=== PATIENT | female | born 1990 | race Caucasian/White ===

== ENCOUNTER 2017-11-05 18:57 | Emergency (ER) | payer SELFPAY ==
[2017-11-05] MEDS ORDERED: ALBUTEROL SULFATE HFA (90 MCG/PUFF) 8 GM MDI (1 MDI/ER DISP) IH PRN (19:27)
[2017-11-05] MEDS ORDERED: KETOROLAC TROMETHAMINE 60 MG/2 ML SDV IM ONE (19:47)
--- NOTE | 2017-11-05 20:08 | ER Document Report ---
ED General - General Chief Complaint: Cold Symptoms Stated Complaint: FEVER,COUGH Time Seen by Provider: 11/05/17 19:23 Mode of Arrival: Ambulatory Information source: Patient Notes: 27-year-old female presents with 2 day duration of generalized body aches fevers nonproductive cough. Patient notes she has had intermittent cough for the past 4 or 5 months since she stopped smoking. She denies any shortness breath or fevers throughout that period of time. Patient does note that the symptoms worsened in the last few days and that this feels different. On arrival patient is noted to be febrile TRAVEL OUTSIDE OF THE [place] IN LAST 30 DAYS: No - HPI Onset: Yesterday Onset/Duration: Persistent Quality of pain: Achy Severity: Mild Pain Level: 1 Associated symptoms: Body/muscle aches, Nonproductive cough, Fever Exacerbated by: Denies Relieved by: Denies Similar symptoms previously: No Recently seen / treated by doctor: No - Related Data Allergies/Adverse Reactions: cats Allergy (Uncoded 11/05/17 18:57) Past Medical History - Social History Smoking Status: Former Smoker Cigarette use (# per day): No Chew tobacco use (# tins/day): No Smoking Education Provided: No Frequency of alcohol use: None Drug Abuse: None Family History: Reviewed & Not Pertinent Patient has suicidal ideation: No Patient has homicidal ideation: No Pulmonary Medical History: Reports: Hx Asthma Renal/ Medical History: Denies: Hx Peritoneal Dialysis Past Surgical History: Reports: Hx Oral Surgery - wisdom teeth - Immunizations Hx Diphtheria, Pertussis, Tetanus Vaccination: Yes Review of Systems - Review of Systems Notes: REVIEW OF SYSTEMS: CONSTITUTIONAL : admits to fever EENT: Denies eye, ear, throat, or mouth pain or symptoms. Denies nasal or sinus congestion or discharge. Denies throat, tongue, or mouth swelling or difficulty swallowing. CARDIOVASCULAR: Denies chest pain. Denies palpitations or racing or irregular heart beat. Denies ankle edema. RESPIRATORY:admits to ocugh productive , sob GASTROINTESTINAL: Denies abdominal pain or distention. Denies nausea, vomiting , or diarrhea. Denies blood in vomitus, stools, or per rectum. Denies black, tarry stools. Denies constipation. GENITOURINARY: Denies difficulty urinating, painful urination, burning, frequency, blood in urine, or discharge. FEMALE GENITOURINARY: Denies vaginal bleeding, heavy or abnormal periods, irregular periods. Denies vaginal discharge or odor. MUSCULOSKELETAL: Denies back or neck pain or stiffness. Denies joint pain or swelling. SKIN: Denies rash, lesions or sores. HEMATOLOGIC : Denies easy bruising or bleeding. LYMPHATIC: Denies swollen, enlarged glands. NEUROLOGICAL: Denies confusion or altered mental status. Denies passing out or loss of consciousness. Denies dizziness or lightheadedness. Denies headache. Denies weakness or paralysis or loss of use of either side. Denies problems with gait or speech. Denies sensory loss, numbness, or tingling. Denies seizures. PSYCHIATRIC: Denies anxiety or stress. Denies depression, suicidal ideation, or homicidal ideation. ALL OTHER SYSTEMS REVIEWED AND NEGATIVE. PHYSICAL EXAMINATION: GENERAL: Well-appearing, well-nourished and in no acute distress. febrile HEAD: Atraumatic, normocephalic. EYES: Pupils equal round and reactive to light, extraocular movements intact, conjunctiva are normal. ENT: Nares patent, oropharynx clear without exudates. Moist mucous membranes. NECK: Normal range of motion, supple without lymphadenopathy LUNGS: Breath sounds clear to auscultation bilaterally and equal. faint end expiratroy wheezing HEART: Regular rate and rhythm without murmurs ABDOMEN: Soft, nontender, nondistended abdomen. No guarding, no rebound. No masses appreciated. Female : deferred Musculoskeletal: Normal range of motion, no pitting or edema. No cyanosis. NEUROLOGICAL: Cranial nerves grossly intact. Normal speech, normal gait. Normal sensory, motor exams PSYCH: Normal mood, normal affect. SKIN: Warm, Dry, normal turgor, no rashes or lesions noted. Dictation was performed using [employer] recognition software Physical Exam - Vital signs Vitals: Temp Pulse Resp BP Pulse Ox 101.2 F H 127 H 20 153/104 H 95 11/05/17 19:01 11/05/17 19:01 11/05/17 19:01 11/05/17 19:01 11/05/17 19:01 Course - Re-evaluation Re-evalutation: 11/05/17 20:21 Chest x-ray influenza pending otherwise patient looks well is in no distress she will be treated for fever - Vital Signs Vital signs: Temp Pulse Resp BP Pulse Ox 101.2 F H 127 H 20 153/104 H 95 11/05/17 19:01 11/05/17 19:01 11/05/17 19:01 11/05/17 19:01 11/05/17 19:01 Discharge - Discharge Clinical Impression: Body aches, Tachycardia Fever Qualifiers: Fever type: unspecified Qualified Code(s): R50.9 - Fever, unspecified Condition: Stable Disposition: HOME, SELF-CARE Instructions: Upper Respiratory Illness ([facility]) Additional Instructions: Follow up with your physician tomorrow for further care or return to the ED IMMEDIATELY if symptoms worsen or new concerns occur. If you cannot afford to follow up with your primary care physician a list of low cost clinics have been provided at the end of your discharge papers as well. Forms: Return to Work
[2017-11-05 20:36] LABS: A TYPE INFLUENZA AG NEGATIVE (NEGATIVE); B INFLUENZA AG NEGATIVE (NEGATIVE)
--- NOTE | 2017-11-05 20:54 | RADIOLOGY REPORT (SQ) ---
EXAM DESCRIPTION: CHEST PA/LAT COMPLETED DATE/TIME: 11/05/2017 8:47 pm REASON FOR STUDY: cough, fever COMPARISON: 2014. TECHNIQUE: Frontal and lateral radiographic views of the chest acquired. NUMBER OF VIEWS: Two view. LIMITATIONS: None. FINDINGS: LUNGS AND PLEURA: No opacities, masses or pneumothorax. No pleural effusion. MEDIASTINUM AND HILAR STRUCTURES: No masses or contour abnormalities. HEART AND VASCULAR STRUCTURES: Heart normal size. No evidence for failure. BONES: No acute findings. HARDWARE: None in the chest. OTHER: No other significant finding. IMPRESSION: NO SIGNIFICANT RADIOGRAPHIC FINDING IN THE CHEST. TECHNICAL DOCUMENTATION: JOB ID: [id number] [employer]- All Rights Reserved
[2017-11-05 21:14] VITALS: BP 140/93
== END 2017-11-05 21:11 | disposition home or self-care (01) ==
LOC: ER 18:57
DX: M79.1 Myalgia (principal); R00.0 Tachycardia, unspecified; R50.9 Fever, unspecified; Z87.891 Personal history of nicotine dependence
CPT/HCPCS: 99283; 96372; 87804; 71046; J1885; J3490

== ENCOUNTER 2018-09-04 11:49 | Inpatient (IN) | payer SELFPAY ==
[2018-09-04] MEDS ORDERED: NORMAL SALINE 1000 ML 1,000 ML IV ONE (12:51)
[2018-09-04] MEDS ORDERED: IPRATROPIUM/ALBUTEROL 0.5-2.5 MG/3 ML AMPUL NEB ONE ×2 (12:51→14:25)
[2018-09-04] MEDS ORDERED: METHYLPREDNISOLONE INJ 125 MG/2 ML SDV IV ONE (12:51)
--- NOTE | 2018-09-04 12:53 | ER Document Report ---
ED Medical Screen (RME) - General Chief Complaint: Cough Stated Complaint: DIFFICULTY BREATHING,CONGESTION Time Seen by Provider: 09/04/18 12:30 Mode of Arrival: Ambulatory Information source: Patient Notes: Patient presents with a 3-day history of exertional dyspnea and cough. Patient complains of a pressure in her chest that radiates through to her back. Patient denies any fever. Patient states this is not typical of her usual asthma exacerbations. Patient is concerned that she may have pneumonia. Patient ambulated in the ER and heart rate increased to 138, oxygen saturation maintained at 94% I have greeted and performed a rapid initial assessment of this patient. A comprehensive ED assessment and evaluation of the patient, analysis of test results and completion of the medical decision making process will be conducted by additional ED providers. TRAVEL OUTSIDE OF THE [place] IN LAST 30 DAYS: No - Related Data Allergies/Adverse Reactions: cats Allergy (Uncoded 11/05/17 18:57) Past Medical History Pulmonary Medical History: Reports: Hx Asthma Renal/ Medical History: Denies: Hx Peritoneal Dialysis Past Surgical History: Reports: Hx Oral Surgery - wisdom teeth - Immunizations Hx Diphtheria, Pertussis, Tetanus Vaccination: Yes Physical Exam - Vital signs Vitals: Temp Pulse Resp BP Pulse Ox 98.1 F 124 H 16 189/92 H 96 09/04/18 11:54 09/04/18 11:54 09/04/18 11:54 09/04/18 11:54 09/04/18 11:54 - Respiratory Respiratory status: Labored Breath sounds: Nonproductive cough, Wheezing - Faint wheezing - Cardiovascular Rhythm: Tachycardia - 138 Heart sounds: S1 appreciated, S2 appreciated Course - Vital Signs Vital signs: Temp Pulse Resp BP Pulse Ox 98.1 F 124 H 16 189/92 H 96 09/04/18 11:54 09/04/18 11:54 09/04/18 11:54 09/04/18 11:54 09/04/18 11:54
[2018-09-04 13:53] LABS: ABSOLUTE EOSINOPHILS # (AUTO) 0.2 10^3/uL (0.0-0.6); ABSOLUTE LYMPHOCYTES (AUTO) 1.2 10^3/uL (0.5-4.7); ABSOLUTE MONOCYTES (AUTO) 0.6 10^3/uL (0.1-1.4); HEMATOCRIT 45.1 % (36.0-47.0); HEMOGLOBIN 15.7 g/dL (12.0-15.5); LYMPHOCYTES % (AUTO) 23.2 % (13-45); MEAN CORPUSCULAR HEMOGLOBIN 28.3 pg (27.0-33.4); MEAN CORPUSCULAR HGB CONC 34.9 g/dL (32.0-36.0); MEAN CORPUSCULAR VOLUME 81 fl (80-97); MONOCYTES % (AUTO) 12.2 % (3-13); PLATELET COUNT 295 10^3/uL (150-450); RED BLOOD COUNT 5.57 10^6/uL (3.72-5.28); RED CELL DISTRIBUTION WIDTH 13.1 % (11.5-14.0); SEGMENTED NEUTROPHILS % (AUTO) 59.6 % (42-78); TOTAL CELLS COUNTED % (AUTO) 100 %
--- NOTE | 2018-09-04 14:17 | RADIOLOGY REPORT (SQ) ---
EXAM DESCRIPTION: CHEST 2 VIEWS COMPLETED DATE/TIME: 09/04/2018 1:52 pm REASON FOR STUDY: cp, anita COMPARISON: 11/05/2017 EXAM PARAMETERS: NUMBER OF VIEWS: two views TECHNIQUE: Digital Frontal and Lateral radiographic views of the chest acquired. RADIATION DOSE: NA LIMITATIONS: none FINDINGS: LUNGS AND PLEURA: No opacities, masses or pneumothorax. No pleural effusion. MEDIASTINUM AND HILAR STRUCTURES: No masses or contour abnormalities. HEART AND VASCULAR STRUCTURES: Heart normal size. No evidence for failure. BONES: No acute findings. HARDWARE: None in the chest. OTHER: No other significant finding. IMPRESSION: NO ACUTE RADIOGRAPHIC FINDING IN THE CHEST. TECHNICAL DOCUMENTATION: JOB ID: [id number] [employer]- All Rights Reserved Reading location - IP/workstation name: [email or web address]
[2018-09-04 14:19] LABS: ALANINE AMINOTRANSFERASE 24 U/L (9-52); ALBUMIN 4.5 g/dL (3.5-5.0); ALKALINE PHOSPHATASE 59 U/L (38-126); ANION GAP 13 (5-19); ASPARTATE AMINO TRANSFERASE 36 U/L (14-36); BILIRUBIN,DIRECT 0.3 mg/dL (0.0-0.4); BILIRUBIN,TOTAL 0.4 mg/dL (0.2-1.3); BLOOD UREA NITROGEN 11 mg/dL (7-20); CALCIUM 9.4 mg/dL (8.4-10.2); CARBON DIOXIDE 25 mmol/L (22-30); CHLORIDE 102 mmol/L (98-107); GLUCOSE 105 mg/dL (75-110); SODIUM 139.5 mmol/L (137-145); TOTAL PROTEIN 8.2 g/dL (6.3-8.2)
[2018-09-04] MEDS ORDERED: ALBUTEROL SULFATE 0.083% NEB 2.5 MG/3 ML AMPUL NEB ONE (14:25)
[2018-09-04] MEDS ORDERED: MAGNESIUM SULFATE/D5W 2 GM/200 ML RTUPB IV ONE (15:16)
[2018-09-04] MEDS: MAGNESIUM SULFATE/D5W 1 GM/100 ML RTUPB IV SCH ×2 (15:21→15:32)
--- NOTE | 2018-09-04 16:28 | ER Document Report ---
ED Respiratory Problem - General Chief Complaint: Cough Stated Complaint: DIFFICULTY BREATHING,CONGESTION Time Seen by Provider: 09/04/18 12:30 Mode of Arrival: Ambulatory Notes: Patient is a 28-year-old female with past medical history of asthma who presents with chief complaint of shortness of breath. Patient reports that she began with a cough and congestion 3 days ago states that she has been using her albuterol inhaler with minimal relief. Patient states that she has had a history of multiple pneumonias in the past. Denies any fever or chills. Denies any chest pain. Patient denies any history of DVT or PE, denies any recent travel, denies the use of any oral contraceptives, does reports that she smokes approximately 2 times per month. TRAVEL OUTSIDE OF THE [place] IN LAST 30 DAYS: No - Related Data Allergies/Adverse Reactions: No Known Drug Allergies Allergy (Verified 09/04/18 12:55) cats Allergy (Uncoded 09/04/18 12:55) Past Medical History - General Information source: Patient - Social History Smoking Status: Never Smoker Chew tobacco use (# tins/day): No Frequency of alcohol use: None Drug Abuse: None Family History: Reviewed & Not Pertinent Patient has suicidal ideation: No Patient has homicidal ideation: No Pulmonary Medical History: Reports: Hx Asthma Renal/ Medical History: Denies: Hx Peritoneal Dialysis Past Surgical History: Reports: Hx Oral Surgery - wisdom teeth - Immunizations Hx Diphtheria, Pertussis, Tetanus Vaccination: Yes Review of Systems - Review of Systems Constitutional: No symptoms reported EENT: No symptoms reported Cardiovascular: No symptoms reported Respiratory: Cough, Short of breath, Wheezing Gastrointestinal: No symptoms reported Genitourinary: No symptoms reported Female Genitourinary: No symptoms reported Musculoskeletal: No symptoms reported Skin: No symptoms reported Hematologic/Lymphatic: No symptoms reported Neurological/Psychological: No symptoms reported Physical Exam - Vital signs Vitals: Temp Pulse Resp BP Pulse Ox 98.1 F 124 H 16 189/92 H 96 09/04/18 11:54 09/04/18 11:54 09/04/18 11:54 09/04/18 11:54 09/04/18 11:54 - Notes Notes: PHYSICAL EXAMINATION: GENERAL: Well-appearing, well-nourished and in moderate distress. HEAD: Atraumatic, normocephalic. EYES: Pupils equal round and reactive to light, extraocular movements intact, conjunctiva are normal. ENT: Nares patent, oropharynx clear without exudates. Moist mucous membranes. NECK: Normal range of motion, supple without lymphadenopathy LUNGS: Expiratory wheezing noted bilaterally.. HEART: Regular rate and rhythm without murmurs ABDOMEN: Soft, nontender, nondistended abdomen. No guarding, no rebound. No masses appreciated. Female : No CVA tenderness. Musculoskeletal: Normal range of motion, no pitting or edema. No cyanosis. NEUROLOGICAL: Cranial nerves grossly intact. Normal speech, normal gait. Normal sensory, motor exams PSYCH: Normal mood, normal affect. SKIN: Warm, Dry, normal turgor, no rashes or lesions noted. Course - Re-evaluation Re-evalutation: Patient with significant expiratory wheezing on initial examination. At this time she had Erick received 1 DuoNeb and 125 mg of IV Solu-Medrol. Chest x-ray was performed which was negative for any infiltrates or pneumothorax. Patient' s pulse ox remains 93-94% on room air, heart rate in the 120s. Patient will be given 1 L normal saline. Repeat evaluation patient continues to have significant expiratory wheezing. 2 g of mag sulfate were delivered IV. Additional breathing treatments ordered. Patient reports no improvement of her symptoms. Contacted hospitalist, Dr. Combs for admission. He agrees to come and evaluate the patient. - Vital Signs Vital signs: Temp Pulse Resp BP Pulse Ox 98.1 F 128 H 16 140/67 H 92 09/04/18 11:54 09/04/18 16:39 09/04/18 16:39 09/04/18 16:39 09/04/18 16:39 - Laboratory Result Diagrams: 09/04/18 13:27 09/04/18 13:27 Laboratory results interpreted by me: 09/04/18 13:27 RBC 5.57 H Hgb 15.7 H Discharge - Discharge Clinical Impression: Tachycardia Asthma exacerbation Qualifiers: Asthma severity: mild Asthma persistence: intermittent Qualified Code(s): J45.21 - Mild intermittent asthma with (acute) exacerbation Condition: Stable Disposition: ADMITTED INPATIENT Admitting Provider: Hospitalist Unit Admitted: Medical Floor
[2018-09-04] MEDS ORDERED: MAG HYDROX/AL HYDROX/SIMETH SUSP 30 ML UDCUP PO PRN (17:28)
[2018-09-04] MEDS ORDERED: MAGNESIUM HYDROXIDE SUSP 30 ML UDCUP PO PRN (17:28)
[2018-09-04] MEDS ORDERED: ZOLPIDEM TARTRATE 5 MG TABLET PO PRN (17:28)
[2018-09-04] MEDS ORDERED: ACETAMINOPHEN 650 MG SUPP.RECT PR PRN (17:33)
[2018-09-04] MEDS ORDERED: ACETAMINOPHEN 325 MG TABLET PO PRN (17:33)
[2018-09-04] MEDS: METHYLPREDNISOLONE INJ 40 MG/1 ML SDV IV SCH ×2 (18:12→23:05)
--- NOTE | 2018-09-04 18:37 | EKG REPORT ---
SEVERITY:- ABNORMAL ECG - SINUS TACHYCARDIA BORDERLINE RIGHT AXIS DEVIATION INFERIOR Q WAVES, PROBABLY NORMAL VARIATION BORDERLINE T ABNORMALITIES, INFERIOR LEADS : Confirmed by: Maikel Thomas MD 04-Sep-2018 18:36:57
--- NOTE | 2018-09-04 19:02 | PDOC H&P ---
History of Present Illness Admission Date/PCP: 09/04/18 17:37 Patient complains of: Dyspnea with wheezing History of Present Illness: MICHELLE VERGARA is a 28 year old female who presented to the emergency room with a 3-day history of worsening dyspnea and wheezing. She admits that she has a history of asthma which was more severe as a child but in her adult life she has experienced on average 1 attack per year. Her attacks usually come on about the same time every year (around ) and are generally less severe than the current attack. She describes her current attack as being severe dyspnea and wheezing with a sensation of inability to take a deep breath due to a nonradiating, moderately severe, heaviness, centrally positioned on the anterior chest. She associates the dyspnea and wheezing with a mild cough and nasal congestion that she developed over the same interval. She has used a few puffs of what was left in an old albuterol inhaler at home without relief. She subsequently presented to the emergency room for treatment and after receiving several nebulizer treatments as well as intravenous magnesium sulfate and IV steroids she had improved but remained somewhat hypoxic with any exertion and continued to have dyspnea which was mild at rest and moderate with activity or exertion. Because of her failure to clear she was admitted to the hospital for further evaluation treatment. Past Medical History Cardiac Medical History: Reports: Hypertension - She has been told her blood pressure has been elevated in the past, Other - She has been told her heart rate has been fast in the past Denies: Atrial Fibrillation, Congestive Heart Failure, Coronary Artery Disease, DVT, Myocardial Infarction, Hyperlipidema, Peripheral Vascular Disease , Pulmonary Embolism, Heart Murmur Pulmonary Medical History: Reports: Asthma Denies: Chronic Obstructive Pulmonary Disease (COPD), Intubation, Respiratory Failure, Sleep Apnea, Tuberculosis EENT Medical History: Reports: None Neurological Medical History: Denies: Migraine, Multiple Sclerosis, Seizures Endocrine Medical History: Reports: Obesity Denies: Diabetes Mellitus Type 1, Diabetes Mellitus Type 2 Renal/ Medical History: Denies: Chronic Kidney Disease, Nephrolithiasis Malignancy Medical History: Reports: None GI Medical History: Denies: Crohn's Disease, Gastroesophageal Reflux Disease, Hepatitis, Peptic Ulcer Disease, Ulcerative Colitis Musculoskeltal Medical History: Denies: Arthritis, Fibromyalgia Skin Medical History: Denies: Eczema, Psoriasis Psychiatric Medical History: Denies: Alcohol Dependency, Depression, General Anxiety Disorder, Substance Abuse, Tobacco Dependency Traumatic Medical History: Reports: None Hematology: Reports: None Infectious Medical History: Reports: None Past Surgical History Past Surgical History: Reports: None, Other - 0 para 0 AB 0 Social History Information Source: Patient Lives with: Spouse/Significant other Smoking Status: Current Some Day Smoker - 2 times per month Frequency of Alcohol Use: Rare Hx Recreational Drug Use: No Hx Prescription Drug Abuse: No - Advance Directive Resuscitation Status: Full Code Surrogate healthcare decision maker:: The patient's mother Family History Family History: Thyroid Disfunction Parental Family History Reviewed: Yes Children Family History Reviewed: NA Sibling(s) Family History Reviewed.: Yes Medication/Allergy Home Medications: No Home Medications 11/05/17 Allergies/Adverse Reactions: No Known Drug Allergies Allergy (Verified 09/04/18 17:59) cats Allergy (Uncoded 09/04/18 17:59) Review of Systems Constitutional: ABSENT: chills, fever(s), night sweats Eyes: ABSENT: visual disturbances, other - Ocular pain Ears: ABSENT: hearing changes, other - Ear pain Nose, Mouth, and Throat: PRESENT: other - Nasal congestion is noted in HPI. ABSENT: mouth pain, sore throat Cardiovascular: PRESENT: chest pain - Anterior chest heaviness with breathing, dyspnea on exertion, palpitations - Rapid heart rate. ABSENT: edema, orthropnea Respiratory: PRESENT: cough - Nonproductive as noted in HPI, dyspnea. ABSENT: hemoptysis, sputum Gastrointestinal: ABSENT: abdominal pain, constipation, diarrhea, nausea, vomiting Genitourinary: ABSENT: dysuria, hematuria Musculoskeletal: ABSENT: deformity, joint swelling Integumentary: ABSENT: pruritus, rash Neurological: ABSENT: convulsions, memory loss, vertigo Psychiatric: ABSENT: anxiety, depression Endocrine: PRESENT: heat intolerance. ABSENT: cold intolerance, polydipsia, polyphagia, polyuria Hematologic/Lymphatic: ABSENT: easy bleeding, easy bruising Allergic/Immunologic: PRESENT: seasonal rhinorrhea. ABSENT: other - Insect bite allergy Physical Exam Vital Signs: Temp Pulse Resp BP Pulse Ox 98.1 F 119 H 20 138/93 H 94 09/04/18 11:54 09/04/18 18:20 09/04/18 18:20 09/04/18 18:20 09/04/18 18:20 General appearance: PRESENT: cooperative, mild distress - Minimal to mild respiratory distress, obese Head exam: PRESENT: atraumatic, normocephalic Eye exam: PRESENT: conjunctiva pink, EOMI, other - Mild exophthalmos is noted bilaterally. ABSENT: conjunctival injection, nystagmus, scleral icterus Ear exam: PRESENT: normal external ear exam. ABSENT: bleeding, drainage Mouth exam: PRESENT: neck supple, other - Normal oral mucosa with good dentition Neck exam: PRESENT: thyromegaly - Mild fullness of the thyroid to palpation with no clear nodularity or tenderness.. ABSENT: JVD, tenderness, tracheal deviation Respiratory exam: PRESENT: accessory muscle use - Mild accessory muscle use with increased labored breathing, prolonged expiratory phas - Moderately prolonged expiratory phase, symmetrical, tachypnea, wheezes - Moderate to severe expiratory wheezes. ABSENT: decreased breath sounds, rales, retraction, rhonchi Cardiovascular exam: PRESENT: RRR, tachycardia - 120s. ABSENT: clicks, diastolic murmur, gallop, rubs, systolic murmur Pulses: PRESENT: normal radial pulses, normal dorsalis pedis pul Vascular exam: PRESENT: normal capillary refill. ABSENT: pallor GI/Abdominal exam: PRESENT: normal bowel sounds, soft. ABSENT: tenderness Rectal exam: PRESENT: deferred Extremities exam: ABSENT: joint swelling, pedal edema Musculoskeletal exam: PRESENT: full ROM, normal inspection Neurological exam: PRESENT: alert, oriented to person, oriented to place, oriented to time, oriented to situation, CN II-XII grossly intact. ABSENT: motor sensory deficit Psychiatric exam: PRESENT: appropriate affect, normal mood Skin exam: PRESENT: dry, intact, warm. ABSENT: jaundice, rash, urticaria Results Impressions: Chest X-Ray 09/04/18 12:51 IMPRESSION: NO ACUTE RADIOGRAPHIC FINDING IN THE CHEST. Assessment & Plan - Diagnosis (1) Acute exacerbation of extrinsic asthma Is this a current diagnosis for this admission?: Yes Plan: Patient will be admitted for treatment of her asthma with intravenous steroids and an aggressive pulmonary toilet utilizing nebulizer therapies. (2) Tachycardia Is this a current diagnosis for this admission?: Yes Plan: Patient's tachycardia will be addressed by relieving her underlying problem of acute asthma and further investigation to rule out possible thyroid etiology. Further investigations were performed as required if her tachycardia does not resolve with treatment. (3) Enlarged thyroid gland Is this a current diagnosis for this admission?: Yes Plan: A thyroid profile is ordered for the morning lab. Further evaluation, investigation and treatment will be based upon those results. (4) Obesity (BMI 35.0-39.9 without comorbidity) Is this a current diagnosis for this admission?: Yes Plan: Patient has chronic severe obesity and discussion of weight loss. A dietary consultation will be obtained to make dietary recommendations to aid her in weight loss. - Time Time Spent: 30 to 50 Minutes Smoking Cessation Education: 3 to 10 minutes - Briefly discussed her some day smoking history recommending that she abstain completely from use of tobacco or other nicotine-containing products. Medications reviewed and adjusted accordingly: Yes Anticipated discharge: Home Within: within 72 hours - Inpatient Certification Based on my medical assessment, after consideration of the patient's comorbidities, presenting symptoms, or acuity I expect that the services needed warrant INPATIENT care.: Yes I certify that my determination is in accordance with my understanding of Medicare's requirements for reasonable and necessary INPATIENT services [42 CFR 412.3e].: Yes Medical Necessity: Failure to Improve With Outpatient Therapy, Need for Nebulizer Therapy and Monitoring of Response
[2018-09-04] MEDS: BUDESONIDE NEB 0.5 MG/2 ML AMPUL NEB SCH (19:54)
[2018-09-04] MEDS: DOCUSATE SODIUM 100 MG CAPSULE PO SCH (21:02)
[2018-09-04] MEDS: FAMOTIDINE 20 MG TABLET PO SCH (23:05)
[2018-09-04] MEDS: HEPARIN SOD (PORCINE) 5,000 UNIT/ML 1 ML SYRINGE SUBCUT SCH (23:05)
[2018-09-04] MEDS: IPRATROPIUM BROMIDE 0.02% NEB 0.5 MG/2.5 ML AMPUL NEB SCH (23:53)
[2018-09-04] MEDS: LEVALBUTEROL HCL NEB 1.25 MG/3 ML AMPUL NEB SCH (23:53)
[2018-09-05 05:05] LABS: ABSOLUTE MONOCYTES (AUTO) 0.2 10^3/uL (0.1-1.4); ABSOLUTE NEUT (AUTO) 6.9 10^3/uL (1.7-8.2); BASOPHILS % (AUTO) 0.1 % (0-2); HEMATOCRIT 42.4 % (36.0-47.0); HEMOGLOBIN 14.6 g/dL (12.0-15.5); LYMPHOCYTES % (AUTO) 12.1 % (13-45); MEAN CORPUSCULAR HGB CONC 34.4 g/dL (32.0-36.0); MEAN CORPUSCULAR VOLUME 81 fl (80-97); MONOCYTES % (AUTO) 2.9 % (3-13); PLATELET COUNT 355 10^3/uL (150-450); RED CELL DISTRIBUTION WIDTH 12.7 % (11.5-14.0); SEGMENTED NEUTROPHILS % (AUTO) 84.9 % (42-78); TOTAL CELLS COUNTED % (AUTO) 100 %; WHITE BLOOD COUNT 8.2 10^3/uL (4.0-10.5)
[2018-09-05] MEDS: METHYLPREDNISOLONE INJ 40 MG/1 ML SDV IV SCH (05:09)
[2018-09-05] MEDS: HEPARIN SOD (PORCINE) 5,000 UNIT/ML 1 ML SYRINGE SUBCUT SCH ×3 (05:11→21:06)
[2018-09-05 05:21] LABS: ANION GAP 13 (5-19); BLOOD UREA NITROGEN 10 mg/dL (7-20); CALCIUM 9.3 mg/dL (8.4-10.2); CARBON DIOXIDE 25 mmol/L (22-30); CHLORIDE 103 mmol/L (98-107); CHOLESTEROL 165.89 mg/dL (0-200); GLUCOSE 186 mg/dL (75-110); POTASSIUM 4.7 mmol/L (3.6-5.0); SODIUM 140.8 mmol/L (137-145); TRIGLYCERIDES 65 mg/dL (<150)
[2018-09-05 05:32] LABS: DIRECT LDL 112 mg/dL (<100)
[2018-09-05 05:39] LABS: FREE T3 2.83 pg/mL (2.77-5.27); FREE T4 (FREE THYROXINE) 1.13 ng/dL (0.78-2.19)
[2018-09-05 05:52] LABS: THYROID STIMULATING HORMONE 0.54 uIU/mL (0.47-4.68)
[2018-09-05] MEDS: LEVALBUTEROL HCL NEB 1.25 MG/3 ML AMPUL NEB SCH ×3 (08:41→23:55)
[2018-09-05] MEDS: BUDESONIDE NEB 0.5 MG/2 ML AMPUL NEB SCH ×2 (08:41→20:07)
[2018-09-05] MEDS: IPRATROPIUM BROMIDE 0.02% NEB 0.5 MG/2.5 ML AMPUL NEB SCH ×3 (08:41→23:55)
[2018-09-05] MEDS: FAMOTIDINE 20 MG TABLET PO SCH ×2 (09:27→21:06)
[2018-09-05] MEDS: DOCUSATE SODIUM 100 MG CAPSULE PO SCH ×2 (09:28→17:39)
--- NOTE | 2018-09-05 15:59 | PDOC PROGRESS REPORT ---
Subjective Progress Note for:: 09/05/18 Subjective:: MICHELLE VERGARA is a 28 year old female who presented to the emergency room with a 3-day history of worsening dyspnea and wheezing. She admits that she has a history of asthma which was more severe as a child but in her adult life she has experienced on average 1 attack per year. Her attacks usually come on about the same time every year (around ) and are generally less severe than the current attack. She describes her current attack as being severe dyspnea and wheezing with a sensation of inability to take a deep breath due to a nonradiating, moderately severe, heaviness, centrally positioned on the anterior chest. She associates the dyspnea and wheezing with a mild cough and nasal congestion that she developed over the same interval. She has used a few puffs of what was left in an old albuterol inhaler at home without relief. She subsequently presented to the emergency room for treatment and after receiving several nebulizer treatments as well as intravenous magnesium sulfate and IV steroids she had improved but remained somewhat hypoxic with any exertion and continued to have dyspnea which was mild at rest and moderate with activity or exertion. Because of her failure to clear she was admitted to the hospital for further evaluation treatment. 09/05/2018: Michelle is significantly improved today with much better inspiration and expiration. She still became significantly dyspneic after walking short distance in the [place] but feels that overall she is quite improved. She has been eating and drinking well and having no difficulty having conversations with her family members either in person or on the phone. She is having no difficulty with elimination and has not experienced any subjective fever or chills. She is tolerating the nebulizer treatments well without significant tremor or palpitations. She has not required supplemental oxygen thus far today however did become quite dyspneic and required continuation of her activity when she was walking in the [place]. Reason For Visit: ACUTE ASTHMA EXACERBATION Physical Exam Vital Signs: Temp Pulse Resp BP Pulse Ox 98.2 F 90 18 133/88 H 98 09/05/18 11:36 09/05/18 11:36 09/05/18 11:36 09/05/18 11:36 09/05/18 11:36 Intake & Output 09/03/18 09/04/18 09/05/18 23:59 23:59 23:59 Intake Total 437 Balance 437 Weight 104.1 kg 104.1 kg General appearance: PRESENT: no acute distress, cooperative, obese Head exam: PRESENT: atraumatic, normocephalic Eye exam: PRESENT: conjunctiva pink, EOMI Ear exam: PRESENT: normal external ear exam. ABSENT: drainage Mouth exam: PRESENT: neck supple, tongue midline Neck exam: PRESENT: thyromegaly - Minimal fullness without nodularity or tenderness noted on palpation of the thyroid. ABSENT: JVD, tracheal deviation Respiratory exam: PRESENT: prolonged expiratory phas - Minimally prolonged expiratory phase, symmetrical, wheezes - Mild end expiratory high-pitched wheezes. ABSENT: accessory muscle use, chest wall tenderness, decreased breath sounds, rales, retraction, rhonchi, stridor, tachypnea Cardiovascular exam: PRESENT: RRR. ABSENT: clicks, gallop, rubs GI/Abdominal exam: PRESENT: normal bowel sounds, soft Rectal exam: PRESENT: deferred Extremities exam: ABSENT: joint swelling, pedal edema Musculoskeletal exam: PRESENT: full ROM, normal inspection Neurological exam: PRESENT: alert, oriented to person, oriented to place, oriented to time, oriented to situation, CN II-XII grossly intact. ABSENT: motor sensory deficit Psychiatric exam: PRESENT: appropriate affect, normal mood Skin exam: PRESENT: dry, intact, warm. ABSENT: jaundice, rash, urticaria Results Laboratory Results: 09/05/18 03:39 09/05/18 03:39 09/05/18 09/05/18 09/05/18 03:39 03:39 03:39 WBC 8.2 RBC 5.20 Hgb 14.6 Hct 42.4 MCV 81 MCH 28.0 MCHC 34.4 RDW 12.7 Plt Count 355 Seg Neutrophils % 84.9 H Lymphocytes % 12.1 L Monocytes % 2.9 L Eosinophils % 0.0 Basophils % 0.1 Absolute Neutrophils 6.9 Absolute Lymphocytes 1.0 Absolute Monocytes 0.2 Absolute Eosinophils 0.0 Absolute Basophils 0.0 Sodium 140.8 Potassium 4.7 Chloride 103 Carbon Dioxide 25 Anion Gap 13 BUN 10 Creatinine 0.62 Est GFR ( Amer) > 60 Est GFR (Non-Af Amer) > 60 Glucose 186 H Calcium 9.3 Magnesium 2.5 H Triglycerides 65 Cholesterol 165.89 LDL Cholesterol Direct 112 H VLDL Cholesterol 13.0 HDL Cholesterol 52 TSH 0.54 Free T4 1.13 Free T3 pg/mL 2.83 Impressions: Chest X-Ray 11/27/18 12:51 IMPRESSION: NO ACUTE RADIOGRAPHIC FINDING IN THE CHEST. Assessment & Plan - Diagnosis (1) Acute exacerbation of extrinsic asthma Is this a current diagnosis for this admission?: Yes Plan: Patient will be admitted for treatment of her asthma with intravenous steroids and an aggressive pulmonary toilet utilizing nebulizer therapies. (2) Tachycardia Is this a current diagnosis for this admission?: Yes Plan: Patient's tachycardia will be addressed by relieving her underlying problem of acute asthma and further investigation to rule out possible thyroid etiology. Further investigations were not required as her tachycardia resolved as her respiratory status improved. (3) Enlarged thyroid gland Is this a current diagnosis for this admission?: Yes Plan: A thyroid profile is ordered for the morning lab. Further evaluation, investigation and treatment will be based upon those results. 08/16/2018: Patient's thyroid profile was noted to be normal with the free T3, free T4 and the TSH all falling within the normal range. (4) Obesity (BMI 35.0-39.9 without comorbidity) Is this a current diagnosis for this admission?: Yes Plan: Patient has chronic severe obesity and discussion of weight loss. A dietary consultation will be obtained to make dietary recommendations to aid her in weight loss. - Time Time Spent with patient: 15-24 minutes Anticipated discharge: Home Within: within 48 hours
[2018-09-05] MEDS: ALBUTEROL SULFATE 0.083% NEB 2.5 MG/3 ML AMPUL NEB PRN (20:07)
[2018-09-06] MEDS ORDERED: BENZONATATE 100 MG CAPSULE PO PRN (00:20)
[2018-09-06] MEDS: HEPARIN SOD (PORCINE) 5,000 UNIT/ML 1 ML SYRINGE SUBCUT SCH ×3 (05:32→22:49)
[2018-09-06 05:59] LABS: ABSOLUTE LYMPHOCYTES (AUTO) 3.6 10^3/uL (0.5-4.7); ABSOLUTE MONOCYTES (AUTO) 0.5 10^3/uL (0.1-1.4); ABSOLUTE NEUT (AUTO) 5.1 10^3/uL (1.7-8.2); BASOPHILS % (AUTO) 0.4 % (0-2); EOSINOPHILS % (AUTO) 0.3 % (0-6); HEMATOCRIT 40.8 % (36.0-47.0); HEMOGLOBIN 13.6 g/dL (12.0-15.5); LYMPHOCYTES % (AUTO) 38.7 % (13-45); MEAN CORPUSCULAR HEMOGLOBIN 27.4 pg (27.0-33.4); MEAN CORPUSCULAR HGB CONC 33.4 g/dL (32.0-36.0); MEAN CORPUSCULAR VOLUME 82 fl (80-97); MONOCYTES % (AUTO) 5.9 % (3-13); PLATELET COUNT 270 10^3/uL (150-450); RED BLOOD COUNT 4.96 10^6/uL (3.72-5.28); SEGMENTED NEUTROPHILS % (AUTO) 54.7 % (42-78); TOTAL CELLS COUNTED % (AUTO) 100 %; WHITE BLOOD COUNT 9.3 10^3/uL (4.0-10.5)
[2018-09-06 06:24] LABS: ANION GAP 12 (5-19); BLOOD UREA NITROGEN 15 mg/dL (7-20); CALCIUM 8.7 mg/dL (8.4-10.2); CARBON DIOXIDE 26 mmol/L (22-30); CHLORIDE 104 mmol/L (98-107); GLUCOSE 98 mg/dL (75-110)
[2018-09-06] MEDS: LEVALBUTEROL HCL NEB 1.25 MG/3 ML AMPUL NEB SCH ×2 (08:23→16:20)
[2018-09-06] MEDS: IPRATROPIUM BROMIDE 0.02% NEB 0.5 MG/2.5 ML AMPUL NEB SCH ×2 (08:23→16:20)
[2018-09-06] MEDS: BUDESONIDE NEB 0.5 MG/2 ML AMPUL NEB SCH ×2 (08:23→20:18)
[2018-09-06] MEDS: LEVOFLOXACIN 750 MG TABLET PO SCH (10:48)
[2018-09-06] MEDS: PREDNISONE 20 MG TABLET PO SCH (10:49)
[2018-09-06] MEDS: DOCUSATE SODIUM 100 MG CAPSULE PO SCH ×2 (10:49→17:31)
[2018-09-06] MEDS: FAMOTIDINE 20 MG TABLET PO SCH ×2 (10:49→22:47)
[2018-09-06] MEDS: ACETYLCYSTEINE 20% SOLN 800 MG/4 ML VIAL.NEB NEB SCH ×2 (12:02→20:17)
[2018-09-06] MEDS: ALBUTEROL SULFATE 0.083% NEB 2.5 MG/3 ML AMPUL NEB PRN ×2 (12:02→20:18)
--- NOTE | 2018-09-06 15:02 | PDOC PROGRESS REPORT ---
Subjective Progress Note for:: 09/06/18 Subjective:: MICHELLE VERGARA is a 28 year old female who presented to the emergency room with a 3-day history of worsening dyspnea and wheezing. She admits that she has a history of asthma which was more severe as a child but in her adult life she has experienced on average 1 attack per year. Her attacks usually come on about the same time every year (around gi) and are generally less severe than the current attack. She describes her current attack as being severe dyspnea and wheezing with a sensation of inability to take a deep breath due to a nonradiating, moderately severe, heaviness, centrally positioned on the anterior chest. She associates the dyspnea and wheezing with a mild cough and nasal congestion that she developed over the same interval. She has used a few puffs of what was left in an old albuterol inhaler at home without relief. She subsequently presented to the emergency room for treatment and after receiving several nebulizer treatments as well as intravenous magnesium sulfate and IV steroids she had improved but remained somewhat hypoxic with any exertion and continued to have dyspnea which was mild at rest and moderate with activity or exertion. Because of her failure to clear she was admitted to the hospital for further evaluation treatment. 09/05/2018: Michelle is significantly improved today with much better inspiration and expiration. She still became significantly dyspneic after walking short distance in the [place] but feels that overall she is quite improved. She has been eating and drinking well and having no difficulty having conversations with her family members either in person or on the phone. She is having no difficulty with elimination and has not experienced any subjective fever or chills. She is tolerating the nebulizer treatments well without significant tremor or palpitations. She has not required supplemental oxygen thus far today however did become quite dyspneic and required continuation of her activity when she was walking in the [place]. 09/06/2018: Michelle states that she feels worse today than she did yesterday. She was feeling well until last evening when she began having severe nasal congestion as well as a minimally productive paroxysmal cough. Her cough and nasal congestion have progressively worsened and kept her from feeling up to doing much for activity other than just going back and forth to the bathroom as required. She has been able to eat and drink without difficulty and can speak to others in a normal voice using full sentences while at rest. She is not developed any problems with her eliminations and feels badly enough that she asked if she could stay in the hospital for a little longer. On her exam she was noted to have improvement with decreased wheezing and a a near normal expiratory phase however she was found to have scattered coarse rales and rhonchi that cleared at least in part with cough. Reason For Visit: ACUTE ASTHMA EXACERBATION Physical Exam Vital Signs: Temp Pulse Resp BP Pulse Ox 97.6 F 87 16 154/83 H 98 09/06/18 11:30 09/06/18 12:02 09/06/18 12:02 09/06/18 11:30 09/06/18 12:02 Intake & Output 09/04/18 09/05/18 09/06/18 23:59 23:59 23:59 Intake Total 1242 2200 Balance 1242 2200 Weight 104.1 kg 104.1 kg 104.2 kg General appearance: PRESENT: cooperative, mild distress - Due to nasal congestion and cough, obese Head exam: PRESENT: atraumatic, normocephalic Eye exam: PRESENT: conjunctiva pink, EOMI Ear exam: PRESENT: normal external ear exam. ABSENT: drainage Mouth exam: PRESENT: neck supple, other - Oral mucosa is moist and intact, dentition is in fair repair. Neck exam: ABSENT: JVD, tracheal deviation Respiratory exam: PRESENT: prolonged expiratory phas - Minimal prolongation of the expiratory phase is noted, rales - Coarse and scattered throughout all hurst, rhonchi - Scattered throughout all hurst clearing, at least in part, with cough, symmetrical, wheezes - Minimal expiratory wheezes are noted. ABSENT : accessory muscle use, retraction, stridor Cardiovascular exam: PRESENT: RRR. ABSENT: clicks, gallop, rubs Vascular exam: PRESENT: normal capillary refill. ABSENT: pallor GI/Abdominal exam: PRESENT: normal bowel sounds, soft Rectal exam: PRESENT: deferred Extremities exam: ABSENT: joint swelling, pedal edema Musculoskeletal exam: PRESENT: ambulatory, full ROM, normal inspection Neurological exam: PRESENT: alert, oriented to person, oriented to place, oriented to time, oriented to situation, CN II-XII grossly intact. ABSENT: motor sensory deficit Psychiatric exam: PRESENT: appropriate affect, normal mood Skin exam: PRESENT: dry, intact, warm Results Laboratory Results: 09/06/18 04:39 09/06/18 04:39 09/06/18 09/06/18 04:39 04:39 WBC 9.3 RBC 4.96 Hgb 13.6 Hct 40.8 MCV 82 MCH 27.4 MCHC 33.4 RDW 13.0 Plt Count 270 Seg Neutrophils % 54.7 Lymphocytes % 38.7 Monocytes % 5.9 Eosinophils % 0.3 Basophils % 0.4 Absolute Neutrophils 5.1 Absolute Lymphocytes 3.6 Absolute Monocytes 0.5 Absolute Eosinophils 0.0 Absolute Basophils 0.0 Sodium 142.0 Potassium 4.0 Chloride 104 Carbon Dioxide 26 Anion Gap 12 BUN 15 Creatinine 0.66 Est GFR ( Amer) > 60 Est GFR (Non-Af Amer) > 60 Glucose 98 Calcium 8.7 Magnesium 2.1 Impressions: Chest X-Ray 09/04/18 12:51 IMPRESSION: NO ACUTE RADIOGRAPHIC FINDING IN THE CHEST. Assessment & Plan - Diagnosis (1) Acute exacerbation of extrinsic asthma Is this a current diagnosis for this admission?: Yes Plan: Patient will be admitted for treatment of her asthma with intravenous steroids and an aggressive pulmonary toilet utilizing nebulizer therapies. 09/06/2018: Because of the patient's new upper respiratory symptoms coverage for a possible infectious etiology (possibly, the extrinsic trigger for her current asthma exacerbation) will be provided with Levaquin 750 mg p.o. daily times 4 days. Additionally she will have Mucomyst added to her nebulizer therapy regimen twice a day and she will be converted from IV to oral steroids. (2) Tachycardia Is this a current diagnosis for this admission?: Yes Plan: Patient's tachycardia will be addressed by relieving her underlying problem of acute asthma and further investigation to rule out possible thyroid etiology. Further investigations were not required as her tachycardia resolved as her respiratory status improved. (3) Enlarged thyroid gland Is this a current diagnosis for this admission?: Yes Plan: A thyroid profile is ordered for the morning lab. Further evaluation, investigation and treatment will be based upon those results. 09/05/2018: Patient's thyroid profile was noted to be normal with the free T3, free T4 and the TSH all falling within the normal range. (4) Obesity (BMI 35.0-39.9 without comorbidity) Is this a current diagnosis for this admission?: Yes Plan: Patient has chronic severe obesity and discussion of weight loss. A dietary consultation will be obtained to make dietary recommendations to aid her in weight loss. - Time Time Spent with patient: 15-24 minutes Medications reviewed and adjusted accordingly: Yes Within: within 48 hours
[2018-09-06] MEDS: MONTELUKAST SODIUM 10 MG TABLET PO SCH (22:47)
[2018-09-07] MEDS: IPRATROPIUM BROMIDE 0.02% NEB 0.5 MG/2.5 ML AMPUL NEB SCH ×4 (00:08→23:49)
[2018-09-07] MEDS: LEVALBUTEROL HCL NEB 1.25 MG/3 ML AMPUL NEB SCH ×4 (00:08→23:49)
[2018-09-07 04:54] LABS: ABSOLUTE BASOPHILS # (AUTO) 0.1 10^3/uL (0.0-0.2); ABSOLUTE EOSINOPHILS # (AUTO) 0.1 10^3/uL (0.0-0.6); ABSOLUTE LYMPHOCYTES (AUTO) 4.3 10^3/uL (0.5-4.7); ABSOLUTE MONOCYTES (AUTO) 0.8 10^3/uL (0.1-1.4); ABSOLUTE NEUT (AUTO) 6.1 10^3/uL (1.7-8.2); BASOPHILS % (AUTO) 0.5 % (0-2); EOSINOPHILS % (AUTO) 0.8 % (0-6); HEMATOCRIT 42.1 % (36.0-47.0); LYMPHOCYTES % (AUTO) 37.6 % (13-45); MEAN CORPUSCULAR HEMOGLOBIN 27.2 pg (27.0-33.4); MEAN CORPUSCULAR HGB CONC 33.3 g/dL (32.0-36.0); MEAN CORPUSCULAR VOLUME 82 fl (80-97); MONOCYTES % (AUTO) 7.4 % (3-13); PLATELET COUNT 282 10^3/uL (150-450); RED BLOOD COUNT 5.14 10^6/uL (3.72-5.28); RED CELL DISTRIBUTION WIDTH 12.8 % (11.5-14.0); SEGMENTED NEUTROPHILS % (AUTO) 53.7 % (42-78); TOTAL CELLS COUNTED % (AUTO) 100 %; WHITE BLOOD COUNT 11.4 10^3/uL (4.0-10.5)
[2018-09-07 05:12] LABS: ANION GAP 13 (5-19); BLOOD UREA NITROGEN 11 mg/dL (7-20); CALCIUM 9.4 mg/dL (8.4-10.2); CARBON DIOXIDE 25 mmol/L (22-30); CHLORIDE 103 mmol/L (98-107); GLUCOSE 96 mg/dL (75-110); POTASSIUM 4.2 mmol/L (3.6-5.0); SODIUM 140.8 mmol/L (137-145)
[2018-09-07] MEDS: HEPARIN SOD (PORCINE) 5,000 UNIT/ML 1 ML SYRINGE SUBCUT SCH ×3 (05:24→21:14)
[2018-09-07] MEDS: ACETYLCYSTEINE 20% SOLN 800 MG/4 ML VIAL.NEB NEB SCH ×2 (08:52→19:42)
[2018-09-07] MEDS: BUDESONIDE NEB 0.5 MG/2 ML AMPUL NEB SCH ×2 (08:52→19:42)
[2018-09-07] MEDS: LEVOFLOXACIN 750 MG TABLET PO SCH (09:59)
[2018-09-07] MEDS: DOCUSATE SODIUM 100 MG CAPSULE PO SCH ×2 (09:59→18:00)
[2018-09-07] MEDS: PREDNISONE 20 MG TABLET PO SCH (09:59)
[2018-09-07] MEDS: FAMOTIDINE 20 MG TABLET PO SCH ×2 (10:00→21:14)
--- NOTE | 2018-09-07 16:07 | PDOC PROGRESS REPORT ---
Subjective Progress Note for:: 09/07/18 Subjective:: MICHELLE VERGARA is a 28 year old female who presented to the emergency room with a 3-day history of worsening dyspnea and wheezing. She admits that she has a history of asthma which was more severe as a child but in her adult life she has experienced on average 1 attack per year. Her attacks usually come on about the same time every year (around gi) and are generally less severe than the current attack. She describes her current attack as being severe dyspnea and wheezing with a sensation of inability to take a deep breath due to a nonradiating, moderately severe, heaviness, centrally positioned on the anterior chest. She associates the dyspnea and wheezing with a mild cough and nasal congestion that she developed over the same interval. She has used a few puffs of what was left in an old albuterol inhaler at home without relief. She subsequently presented to the emergency room for treatment and after receiving several nebulizer treatments as well as intravenous magnesium sulfate and IV steroids she had improved but remained somewhat hypoxic with any exertion and continued to have dyspnea which was mild at rest and moderate with activity or exertion. Because of her failure to clear she was admitted to the hospital for further evaluation treatment. 09/05/2018: Michelle is significantly improved today with much better inspiration and expiration. She still became significantly dyspneic after walking short distance in the [place] but feels that overall she is quite improved. She has been eating and drinking well and having no difficulty having conversations with her family members either in person or on the phone. She is having no difficulty with elimination and has not experienced any subjective fever or chills. She is tolerating the nebulizer treatments well without significant tremor or palpitations. She has not required supplemental oxygen thus far today however did become quite dyspneic and required continuation of her activity when she was walking in the [place]. 09/06/2018: Michelle states that she feels worse today than she did yesterday. She was feeling well until last evening when she began having severe nasal congestion as well as a minimally productive paroxysmal cough. Her cough and nasal congestion have progressively worsened and kept her from feeling up to doing much for activity other than just going back and forth to the bathroom as required. She has been able to eat and drink without difficulty and can speak to others in a normal voice using full sentences while at rest. She is not developed any problems with her eliminations and feels badly enough that she asked if she could stay in the hospital for a little longer. On her exam she was noted to have improvement with decreased wheezing and a a near normal expiratory phase however she was found to have scattered coarse rales and rhonchi that cleared at least in part with cough. 09/07/2018: Michelle is feeling much better today has been up walking in the [place] without significant difficulty or wheezing. She feels like she is much closer to her normal self. We have discussed discharge and I have offered to let her be discharged today if she wishes but she may also stay if she wishes. I feel that the continued use of nebulizer therapy would be appropriate for another 24 hours. I have also offered to help to arrange for nebulizer therapy for a week or so after she is discharged if she would like to continue this. Nebulizer would cost her approximately $20 for 1 week rental and the nebulizer medications would be an additional cost. We have discussed the use of Mucomyst and levalbuterol 3 times a day to improve her expectoration and keep her reactive airway open. She is planning to stay for another day at this time however she understands that she may change her mind should she wish. Reason For Visit: ACUTE ASTHMA EXACERBATION Physical Exam Vital Signs: Temp Pulse Resp BP Pulse Ox 98.3 F 113 H 18 148/93 H 97 09/07/18 15:05 09/07/18 15:05 09/07/18 15:05 09/07/18 15:05 09/07/18 15:05 Intake & Output 09/05/18 09/06/18 09/07/18 23:59 23:59 23:59 Intake Total 1242 3501 680 Balance 1242 3501 680 Weight 104.1 kg 104.2 kg 110.3 kg General appearance: PRESENT: no acute distress, cooperative Head exam: PRESENT: atraumatic, normocephalic Eye exam: PRESENT: conjunctiva pink, EOMI Ear exam: PRESENT: normal external ear exam. ABSENT: drainage Mouth exam: PRESENT: neck supple, other - Oral mucosa is moist and intact dentition is in good repair Neck exam: ABSENT: JVD, tracheal deviation Respiratory exam: PRESENT: prolonged expiratory phas - Minimal prolongation of the expiratory phase is noted being only apparent on efforts at serial deep breaths., symmetrical, unlabored, wheezes - Only rare minimal wheezes noted in the end-expiratory phase when patient is trying for maximal inhalation. Cardiovascular exam: PRESENT: RRR. ABSENT: clicks, gallop, rubs Vascular exam: PRESENT: normal capillary refill. ABSENT: pallor GI/Abdominal exam: PRESENT: normal bowel sounds, soft Rectal exam: PRESENT: deferred Extremities exam: ABSENT: joint swelling, pedal edema Musculoskeletal exam: PRESENT: ambulatory, full ROM, normal inspection Neurological exam: PRESENT: alert, oriented to person, oriented to place, oriented to time, oriented to situation, CN II-XII grossly intact. ABSENT: motor sensory deficit Psychiatric exam: PRESENT: appropriate affect, normal mood Skin exam: PRESENT: dry, intact, warm. ABSENT: jaundice, rash, urticaria Results Laboratory Results: 09/07/18 04:14 09/07/18 04:14 09/07/18 09/07/18 04:14 04:14 WBC 11.4 H RBC 5.14 Hgb 14.0 Hct 42.1 MCV 82 MCH 27.2 MCHC 33.3 RDW 12.8 Plt Count 282 Seg Neutrophils % 53.7 Lymphocytes % 37.6 Monocytes % 7.4 Eosinophils % 0.8 Basophils % 0.5 Absolute Neutrophils 6.1 Absolute Lymphocytes 4.3 Absolute Monocytes 0.8 Absolute Eosinophils 0.1 Absolute Basophils 0.1 Sodium 140.8 Potassium 4.2 Chloride 103 Carbon Dioxide 25 Anion Gap 13 BUN 11 Creatinine 0.60 Est GFR ( Amer) > 60 Est GFR (Non-Af Amer) > 60 Glucose 96 Calcium 9.4 Magnesium 2.2 Impressions: Chest X-Ray 09/04/18 12:51 IMPRESSION: NO ACUTE RADIOGRAPHIC FINDING IN THE CHEST. Assessment & Plan - Diagnosis (1) Acute exacerbation of extrinsic asthma Is this a current diagnosis for this admission?: Yes Plan: Patient will be admitted for treatment of her asthma with intravenous steroids and an aggressive pulmonary toilet utilizing nebulizer therapies. 09/06/2018: Because of the patient's new upper respiratory symptoms coverage for a possible infectious etiology (possibly, the extrinsic trigger for her current asthma exacerbation) will be provided with Levaquin 750 mg p.o. daily times 4 days. Additionally she will have Mucomyst added to her nebulizer therapy regimen twice a day and she will be converted from IV to oral steroids. 09/07/2018: Patient will be continued on oral antibiotic and steroid therapy and will have her commence therapy increased to 3 times daily with Xopenex nebulizer treatments. This regiment will be continued for about 1 week on her discharge. (2) Tachycardia Is this a current diagnosis for this admission?: Yes Plan: Patient's tachycardia will be addressed by relieving her underlying problem of acute asthma and further investigation to rule out possible thyroid etiology. Further investigations were not required as her tachycardia resolved as her respiratory status improved. (3) Enlarged thyroid gland Is this a current diagnosis for this admission?: Yes Plan: A thyroid profile is ordered for the morning lab. Further evaluation, investigation and treatment will be based upon those results. 09/05/2018: Patient's thyroid profile was noted to be normal with the free T3, free T4 and the TSH all falling within the normal range. No further evaluation will be undertaken during her inpatient course. 09/07/2018: I have discussed with the patient her thyroid panel results as well as her lipid panel which demonstrated a mild elevation of her LDL cholesterol. I encouraged her to consider lifestyle changes to try to bring about a normalization of her LDL level below 100. Additionally I recommended that she follow-up with her primary care provider for reevaluation of her slightly generous thyroid without palpable masses or alterations in texture on palpation to my exam. A thyroid ultrasound or thyroid scan could be considered if there are any changes on exam when she is seen by her primary care provider. (4) Obesity (BMI 35.0-39.9 without comorbidity) Is this a current diagnosis for this admission?: Yes Plan: Patient has chronic severe obesity and discussion of weight loss. A dietary consultation will be obtained to make dietary recommendations to aid her in weight loss. - Time Time Spent with patient: 25-34 minutes Medications reviewed and adjusted accordingly: Yes Anticipated discharge: Home Within: within 24 hours
[2018-09-07] MEDS: ALBUTEROL SULFATE 0.083% NEB 2.5 MG/3 ML AMPUL NEB PRN (19:42)
[2018-09-07] MEDS: MONTELUKAST SODIUM 10 MG TABLET PO SCH (21:14)
[2018-09-08] MEDS: HEPARIN SOD (PORCINE) 5,000 UNIT/ML 1 ML SYRINGE SUBCUT SCH (05:44)
[2018-09-08] MEDS: BUDESONIDE NEB 0.5 MG/2 ML AMPUL NEB SCH (08:04)
[2018-09-08] MEDS: IPRATROPIUM BROMIDE 0.02% NEB 0.5 MG/2.5 ML AMPUL NEB SCH (08:04)
[2018-09-08] MEDS: LEVALBUTEROL HCL NEB 1.25 MG/3 ML AMPUL NEB SCH (08:04)
[2018-09-08] MEDS: ACETYLCYSTEINE 20% SOLN 800 MG/4 ML VIAL.NEB NEB SCH (08:04)
[2018-09-08] MEDS: LEVOFLOXACIN 750 MG TABLET PO SCH (09:12)
[2018-09-08] MEDS: DOCUSATE SODIUM 100 MG CAPSULE PO SCH (09:13)
[2018-09-08] MEDS: PREDNISONE 20 MG TABLET PO SCH (09:13)
[2018-09-08] MEDS: FAMOTIDINE 20 MG TABLET PO SCH (09:13)
[2018-09-08 12:28] VITALS: BP 150/91
--- NOTE | 2018-09-08 15:41 | PDOC DISCHARGE SUMMARY ---
General - Admit/Disc Date/PCP Admission Date/Primary Care Provider: 09/04/18 17:37 Discharge Date: 09/08/18 - Discharge Diagnosis (1) Acute exacerbation of extrinsic asthma Is this a current diagnosis for this admission?: Yes Summary: Patient will be admitted for treatment of her asthma with intravenous steroids and an aggressive pulmonary toilet utilizing nebulizer therapies. 09/06/2018: Because of the patient's new upper respiratory symptoms coverage for a possible infectious etiology (possibly, the extrinsic trigger for her current asthma exacerbation) will be provided with Levaquin 750 mg p.o. daily times 4 days. Additionally she will have Mucomyst added to her nebulizer therapy regimen twice a day and she will be converted from IV to oral steroids. 09/07/2018: Patient will be continued on oral antibiotic and steroid therapy and will have her commence therapy increased to 3 times daily with Xopenex nebulizer treatments. This regiment will be continued for about 1 week on her discharge. (2) Tachycardia Is this a current diagnosis for this admission?: Yes Summary: Patient's tachycardia will be addressed by relieving her underlying problem of acute asthma and further investigation to rule out possible thyroid etiology. Further investigations were not required as her tachycardia resolved as her respiratory status improved. (3) Enlarged thyroid gland Is this a current diagnosis for this admission?: Yes Summary: A thyroid profile is ordered for the morning lab. Further evaluation, investigation and treatment will be based upon those results. 09/05/2018: Patient's thyroid profile was noted to be normal with the free T3, free T4 and the TSH all falling within the normal range. No further evaluation will be undertaken during her inpatient course. 09/07/2018: I have discussed with the patient her thyroid panel results as well as her lipid panel which demonstrated a mild elevation of her LDL cholesterol. I encouraged her to consider lifestyle changes to try to bring about a normalization of her LDL level below 100. Additionally I recommended that she follow-up with her primary care provider for reevaluation of her slightly generous thyroid without palpable masses or alterations in texture on palpation to my exam. A thyroid ultrasound or thyroid scan could be considered if there are any changes on exam when she is seen by her primary care provider. (4) Obesity (BMI 35.0-39.9 without comorbidity) Is this a current diagnosis for this admission?: Yes Summary: Patient has chronic severe obesity and discussion of weight loss. A dietary consultation will be obtained to make dietary recommendations to aid her in weight loss. - Additional Information Resuscitation Status: Full Code Discharge Diet: Regular Discharge Activity: Activity As Tolerated, Walk Frequently Prescriptions: Acetylcysteine [Mucomist 20% Soln 800 mg/4 ml] 800 mg IH TID 7 Days #20 vial MDD 2400 mg Guaifenesin [Guiatuss] 200 mg PO Q4HP PRN 4 Days #240 ml PRN Reason: Cough Levalbuterol HCl [Xopenex Neb 1.25 mg/3 ml Ampul] 1.25 mg NEB TID 7 Days #20 vial.neb Levofloxacin [Levaquin 750 mg Tablet] 750 mg PO DAILY 2 Days #2 tablet MDD 750 mg Home Medications: Acetylcysteine [Mucomist 20% Soln 800 mg/4 ml] 800 mg IH TID 7 Days #20 vial MDD 2400 mg 09/07/18 Guaifenesin [Guiatuss] 200 mg PO Q4HP PRN 4 Days #240 ml 09/07/18 Levalbuterol HCl [Xopenex Neb 1.25 mg/3 ml Ampul] 1.25 mg NEB TID 7 Days #20 vial.neb 09/07/18 Levofloxacin [Levaquin 750 mg Tablet] 750 mg PO DAILY 2 Days #2 tablet MDD 750 mg 09/07/18 History of Present Illness Patient complains of: Dyspnea History of Present Illness: MICHELLE VERGARA is a 28 year old female who presented to the emergency room with a 3-day history of worsening dyspnea and wheezing. She admits that she has a history of asthma which was more severe as a child but in her adult life she has experienced on average 1 attack per year. Her attacks usually come on about the same time every year (around ) and are generally less severe than the current attack. She describes her current attack as being severe dyspnea and wheezing with a sensation of inability to take a deep breath due to a nonradiating, moderately severe, heaviness, centrally positioned on the anterior chest. She associates the dyspnea and wheezing with a mild cough and nasal congestion that she developed over the same interval. She has used a few puffs of what was left in an old albuterol inhaler at home without relief. She subsequently presented to the emergency room for treatment and after receiving several nebulizer treatments as well as intravenous magnesium sulfate and IV steroids she had improved but remained somewhat hypoxic with any exertion and continued to have dyspnea which was mild at rest and moderate with activity or exertion. Because of her failure to clear she was admitted to the hospital for further evaluation treatment. Hospital Course Hospital Course: 09/05/2018: Michelle is significantly improved today with much better inspiration and expiration. She still became significantly dyspneic after walking short distance in the [place] but feels that overall she is quite improved. She has been eating and drinking well and having no difficulty having conversations with her family members either in person or on the phone. She is having no difficulty with elimination and has not experienced any subjective fever or chills. She is tolerating the nebulizer treatments well without significant tremor or palpitations. She has not required supplemental oxygen thus far today however did become quite dyspneic and required continuation of her activity when she was walking in the [place]. 09/06/2018: Michelle states that she feels worse today than she did yesterday. She was feeling well until last evening when she began having severe nasal congestion as well as a minimally productive paroxysmal cough. Her cough and nasal congestion have progressively worsened and kept her from feeling up to doing much for activity other than just going back and forth to the bathroom as required. She has been able to eat and drink without difficulty and can speak to others in a normal voice using full sentences while at rest. She is not developed any problems with her eliminations and feels badly enough that she asked if she could stay in the hospital for a little longer. On her exam she was noted to have improvement with decreased wheezing and a a near normal expiratory phase however she was found to have scattered coarse rales and rhonchi that cleared at least in part with cough. 09/07/2018: Michelle is feeling much better today has been up walking in the [place] without significant difficulty or wheezing. She feels like she is much closer to her normal self. We have discussed discharge and I have offered to let her be discharged today if she wishes but she may also stay if she wishes. I feel that the continued use of nebulizer therapy would be appropriate for another 24 hours. I have also offered to help to arrange for nebulizer therapy for a week or so after she is discharged if she would like to continue this. Nebulizer would cost her approximately $20 for 1 week rental and the nebulizer medications would be an additional cost. We have discussed the use of Mucomyst and levalbuterol 3 times a day to improve her expectoration and keep her reactive airway open. She is planning to stay for another day at this time however she understands that she may change her mind should she wish. 09/08/2018: Michelle continues to do very well and feels even better today than she did yesterday. She is up and walking around without any dyspnea. She has been noted to have minimal wheezing and her air movement is normal with no prolonged expiratory phase. She continues to tolerate her oral diet and oral fluids. She has no difficulty with eliminations and she slept reasonably well last night. Is looking forward to going home today and will be discharged home in improved and stable condition. She will be allowed to return to full duty at work on 09/10/2018. Physical Exam Vital Signs: Temp Pulse Resp BP Pulse Ox 98.5 F 102 H 20 143/93 H 96 09/08/18 11:28 09/08/18 11:28 09/08/18 11:28 09/08/18 11:28 09/08/18 11:28 Intake & Output 09/06/18 09/07/18 09/08/18 23:59 23:59 23:59 Intake Total 3501 1611 800 Balance 3501 1611 800 Weight 104.2 kg 110.3 kg 106.4 kg General appearance: PRESENT: no acute distress, cooperative, obese Head exam: PRESENT: atraumatic, normocephalic Eye exam: PRESENT: conjunctiva pink, EOMI Ear exam: PRESENT: normal external ear exam Mouth exam: PRESENT: neck supple Respiratory exam: PRESENT: symmetrical, unlabored, wheezes - Minimal wheezes at end expiratory phase. ABSENT: accessory muscle use, prolonged expiratory phas, retraction Cardiovascular exam: PRESENT: RRR. ABSENT: clicks, gallop, rubs - [id number] Vascular exam: PRESENT: normal capillary refill. ABSENT: pallor GI/Abdominal exam: PRESENT: normal bowel sounds, soft Rectal exam: PRESENT: deferred Extremities exam: ABSENT: joint swelling, pedal edema Musculoskeletal exam: PRESENT: full ROM, normal inspection Neurological exam: PRESENT: alert, oriented to person, oriented to place, oriented to time, oriented to situation, CN II-XII grossly intact. ABSENT: motor sensory deficit Psychiatric exam: PRESENT: appropriate affect, normal mood Skin exam: PRESENT: dry, intact, warm. ABSENT: jaundice, rash, urticaria Results Laboratory Results: 09/07/18 04:14 09/07/18 04:14 Impressions: Chest X-Ray 09/04/18 12:51 IMPRESSION: NO ACUTE RADIOGRAPHIC FINDING IN THE CHEST. Qualifiers - * PATIENT BEING DISCHARGED WITH ANY OF THE FOLLOWING DIAGNOSIS: No Plan Discharge Plan: Discharged home in improved and stable condition Time Spent: Greater than 30 Minutes
== END 2018-09-08 14:00 | disposition home or self-care (01) | DRG 203 ==
LOC: ER 11:49 → EH 17:37 → 4N 19:18
PROVIDERS: ADMIT Emergency Medicine; ATTEND Emergency Medicine
PROC: 3E0F73Z Introduction of Anti-inflammatory into Respiratory Tract, Via Natural or Artificial Opening (ICD-10-PCS; principal; 2018-09-04)
DX: J45.21 Mild intermittent asthma with (acute) exacerbation (principal); E04.9 Nontoxic goiter, unspecified; E66.9 Obesity, unspecified; I10 Essential (primary) hypertension; F17.210 Nicotine dependence, cigarettes, uncomplicated; Z79.899 Other long term (current) drug therapy; Z91.048 Other nonmedicinal substance allergy status
CPT/HCPCS: 36415; 71046; 80048; 80053; 80061; 83735; 84439; 84443; 84481; 84484; 85025; 93005; 93010; 94640; 96361; 96374; 96375; 96376; 99285; J2920; J2930; J3475; J3490; J7030; J7512; J7620